=== PATIENT | male | born 1950 | race Caucasian/White ===

== ENCOUNTER 2025-01-09 13:25 | Outpatient (CLI) | payer MEDICARE | END 2025-01-09 13:26 | disposition home or self-care (01) | LOC: SCSMRI 13:25 | PROVIDERS: ATTEND Orthopaedic Surgery | DX: S46.012A Strain of muscle(s) and tendon(s) of the rotator cuff of left shoulder, initial encounter (principal); M62.512 Muscle wasting and atrophy, not elsewhere classified, left shoulder; R60.0 Localized edema; M75.92 Shoulder lesion, unspecified, left shoulder ==